=== PATIENT | male | born 1990 | race African-American/Black ===

== ENCOUNTER 2019-11-02 04:57 | Emergency (ER) | payer SELFPAY ==
[2019-11-02] MEDS ORDERED: LIDOCAINE 1% INJ-PF (10 MG/ML) 30 ML SDV INJ ONE (05:44)
--- NOTE | 2019-11-02 05:48 | ER Document Report ---
ED Hand/Wrist Injury - General Chief Complaint: Finger Injury Stated Complaint: RIGHT HAND INJURY Time Seen by Provider: 11/02/19 05:39 Primary Care Provider: KRISTIE WILHELM MD [COMMUNITY BASED STAFF] - Follow up as needed Notes: CHIEF COMPLAINT: Finger laceration, ring stuck on finger HPI: 28-year-old male presenting for evaluation of right fourth finger injury tonight. Patient states that his finger began to swell with a thick ring that he had on the finger so he tried to twist the ring off and cut the top of the finger. Denies numbness or tingling in the fingertip. States he is up-to-date on his tetanus vaccination ROS: See HPI - all other systems were reviewed and are otherwise negative Constitutional: no fever Integumentary: no rash, + laceration finger Allergy: no hives Musculoskeletal: no extremity pain or swelling Neurological: no numbness/tingling, no weakness MEDICATIONS: I agree with the patient medications as charted by the RN. ALLERGIES: I agree with the allergies as charted by the RN. PAST MEDICAL HISTORY/PAST SURGICAL HISTORY: Reviewed and agree as charted by RN. SOCIAL HISTORY: Reviewed and agree as charted by RN. FAMILY HISTORY: No significant familial comorbid conditions directly related to patient complaint EXAM: Reviewed vital signs as charted by RN. CONSTITUTIONAL: Alert and oriented and responds appropriately to questions. Well-appearing; well-nourished, mild distress secondary to pain HEAD: Normocephalic; atraumatic EYES: PERRL; Conjunctivae clear, sclerae non-icteric ENT: normal nose; no rhinorrhea; moist mucous membranes NECK: Supple without meningismus CARD: symmetric distal pulses RESP: Normal chest excursion without splinting or tachypnea ABD/GI: non-distended. BACK: The back appears normal EXT: Normal ROM in all joints; no cyanosis, no effusions, 1.5 cm laceration on the dorsal aspect of the right fourth finger overlying the PIP region, no visible tendon injury. There is slight soft tissue swelling noted here. He is able to fully flex and extend the finger at the MCP, PIP and DIP joint space region SKIN: Normal color for age and race; warm; dry; good turgor NEURO: Moves all extremities equally; Motor and sensory function intact PSYCH: The patient's mood and manner are appropriate. Grooming and personal hygiene are appropriate. MDM: 28-year-old male who had a ring stuck on the right fourth finger. Nursing was able to cut the ring off with patient permission. He does have a laceration on the dorsal aspect of the right fourth finger that will require suture closure. - Related Data Allergies/Adverse Reactions: No Known Allergies Allergy (Unverified 11/02/19 05:08) Past Medical History - Social History Smoking Status: Current Every Day Smoker Chew tobacco use (# tins/day): No Frequency of alcohol use: Occasional Drug Abuse: None Family History: Reviewed & Not Pertinent Patient has suicidal ideation: No Patient has homicidal ideation: No Psychiatric Medical History: Reports: Hx Depression Physical Exam - Vital signs Vitals: Temp Pulse Resp BP Pulse Ox 97.8 F 80 18 123/68 98 11/02/19 05:01 11/02/19 05:01 11/02/19 05:01 11/02/19 05:01 11/02/19 05:01 Course - Re-evaluation Re-evalutation: 11/02/19 06:15 I did offer x-ray to evaluate for possible fracture patient declines he is able to flex and extend at the PIP joint space region. - Vital Signs Vital signs: Temp Pulse Resp BP Pulse Ox 97.8 F 80 18 123/68 98 11/02/19 05:01 11/02/19 05:01 11/02/19 05:01 11/02/19 05:01 11/02/19 05:01 Procedures - Laceration/Wound Repair Right Proximal Finger 4th digit Time completed: 06:13 Wound length (cm): 1.5 Wound's Depth, Shape: Superficial, Irregular, Flap, Contused tissue Laceration pre-procedure: Sterile PPE donned, Sterile drapes applied, Shur-Clens applied Volume Anesthetic (mLs): 1 Wound explored: Clean - No tendon injury Irrigated w/ Saline (mLs): 500 Wound Debrided: Minimal Wound Repaired With: Sutures Suture Size/Type: 5:0, Prolene Number of Sutures: 3 Layer Closure?: No Post-procedure wound care: Sterile dressing applied Post-procedure NV exam normal: Yes Complications: No Discharge - Discharge Clinical Impression: Constriction ring syndrome Laceration of finger of right hand Qualifiers: Encounter type: initial encounter Finger: ring finger Damage to nail status: without damage Foreign body presence: without foreign body Qualified Code(s): S61.214A - Laceration without foreign body of right ring finger without damage to nail, initial encounter Condition: Stable Disposition: HOME, SELF-CARE Additional Instructions: Sutures will need to come out in approximately 10 days. Clean the area gently with soap and water daily apply a small amount of antibiotic ointment and a dressing until healed. Ice to the finger to help with swelling. Follow-up with primary care provider for wound check. Motrin Tylenol for pain Referrals: KRISTIE WILHELM MD [COMMUNITY BASED STAFF] - Follow up as needed
[2019-11-02 06:28] VITALS: BP 115/63
== END 2019-11-02 06:31 | disposition home or self-care (01) ==
LOC: ER 04:57
DX: S61.214A Laceration without foreign body of right ring finger without damage to nail, initial encounter (principal); W49.04XA Ring or other jewelry causing external constriction, initial encounter; F17.200 Nicotine dependence, unspecified, uncomplicated
CPT/HCPCS: 99283; 12001; J3490